=== PATIENT | male | born 1960 | race African-American/Black ===

== ENCOUNTER 2019-12-29 10:27 | Emergency (ER) | payer BC ==
[2019-12-29] MEDS ORDERED: HYDROmorphone 1 MG/ML Syringe IM ONE (11:12)
[2019-12-29] MEDS ORDERED: predniSONE 10 MG Tab PO ONE (11:12)
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
== END 2019-12-29 12:05 | disposition home or self-care (01) ==
LOC: JD.ED 10:27
DX: M10.9 Gout, unspecified (principal); I10 Essential (primary) hypertension; Z79.899 Other long term (current) drug therapy
CPT/HCPCS: 96372; 99283; J1170; J7512